=== PATIENT | male | born 1990 | race Caucasian/White ===

== ENCOUNTER 2018-09-21 12:04 | Emergency (ER) | payer SELFPAY ==
[2018-09-21 12:10] VITALS: BP 128/98
--- NOTE | 2018-09-21 12:24 | EDPHY ---
H & P Time Seen by Provider: 09/21/18 12:15 HPI/ROS: CHIEF COMPLAINT: Wants note to return to work HISTORY OF PRESENT ILLNESS: 28-year-old man was sick starting 2 days ago on Thursday with nausea vomiting and diarrhea. At the time he was a little bit sweaty and dizzy and lightheaded. He works as a executive sous chef in a restaurant took the day off from work yesterday and feels better today. He also had a little bit of a cough for 2 days with some green sputum which has since resolved. Today is not had any diarrhea. His last vomiting was yesterday evening. He says he wants to go back to work but needs a note from a doctor. No primary care provider. REVIEW OF SYSTEMS: Eye: no change in vision ENT: no sore throat Cardiac: no chest pain or syncope Pulmonary: No hemoptysis or shortness of breath Abdomen: No abdominal pain Musculoskeletal: no back pain Skin: no rash Neuro: no headache Constitutional: no fever or chills : no urinary symptoms A comprehensive 10 point review of systems is otherwise negative aside from elements mentioned in the history of present illness. PAST MEDICAL HISTORY: Negative Social history: Works as a executive sous chef at the [employer] General Appearance: Alert and conversant, cooperative. Eyes: No scleral icterus. ENT, Mouth: Normal mucous membranes. Normal pharynx, no trismus, no erythema or exudate. Respiratory: Normal respiratory effort, breath sounds equal, lungs are clear to auscultation. Cardiovascular: Regular rate and rhythm. Gastrointestinal: Abdomen is soft and non tender. Neurological: Alert, face symmetric, normal motor and sensory in extremities. Skin: Warm and dry, no rashes. Musculoskeletal: No peripheral edema. Psychiatric: Not agitated. Emergency Department course/MDM: Patient presents with symptoms likely representing a gastroenteritis which has resolved. He does not appear to have fever or active symptoms, it seems reasonable to let him go back to work. Has little bit of a cough for 2 days with sputum is no longer present, does not appear short of breath, afebrile, normal saturation and lung exam. Smoking Status: Current every day smoker Constitutional: Initial Vital Signs Temperature (C) 36.6 C 09/21/18 12:06 Heart Rate 90 09/21/18 12:06 Respiratory Rate 18 09/21/18 12:06 Blood Pressure 128/98 H 11/27/18 12:06 O2 Sat (%) 94 09/21/18 12:06 O2 Delivery Mode Room Air Allergies/Adverse Reactions: No Known Allergies Allergy (Unverified 09/21/18 12:06) Home Medications: Medication Instructions Recorded NK [No Known Home Meds] 09/21/18 MDM/Departure - Depart Disposition: Home, Routine, Self-Care Clinical Impression: gastroenteritis, resolved Condition: Good Instructions: Gastroenteritis (ED) Stand Alone Forms: Work Excuse Referrals: Dmitry Champion DO [Medical Doctor] - As per Instructions
== END 2018-09-21 12:40 | disposition home or self-care (01) ==
DX: K52.9 Noninfective gastroenteritis and colitis, unspecified (principal); F17.200 Nicotine dependence, unspecified, uncomplicated

== ENCOUNTER 2019-02-06 10:52 | Emergency (ER) | payer OTHER ==
[2019-02-06 10:57] VITALS: BP 143/87
--- NOTE | 2019-02-06 11:12 | EDPHY ---
H & P Stated Complaint: Lower back pain Time Seen by Provider: 02/06/19 11:12 HPI/ROS: HPI: This is a 28-year-old male who presents with Chief Complaint: Right-sided lumbar back pain Location: Right-sided lumbar back Quality: Injury, Pain Duration: 10 days ago Signs and Symptoms: No bleeding, no radiation, no numbness, no weakness, no tingling, no incontinence, no decreased range of motion, no swelling, + pain, no fever, no change in bowel or bladder habits Timing: Daily, worse after shift last night Severity: Moderate Context: Patient presents with 10 day history of right-sided lower back pain that is nonradiating in nature. He reports that he fell off his skateboard approximately 10 days ago and landed on his right lower back. He was ambulatory after the injury and continued to skateboard. He has noted some soreness over the last week on the right side of his lower back but denies any decreased range of motion, change in bowel or bladder habits, radiculopathy, paresthesias. Last night he worked his shift as a shift and was standing on his feet for greater than 12 hr with multiple repetitive movements of bending down and squatting. He reports that he woke up this morning with right-sided [id number] discomfort in his lumbar spine. During the interview patient is asking if he will be discharged by 2:00 p.m. Because he needs to go home to do is personal income taxes. Modifying Factors: Took no [id number] medications for discomfort Comment: ROS: A comprehensive 10 system review of systems is otherwise negative aside from elements mentioned in the history of present illness. MEDICAL/SURGICAL/SOCIAL HISTORY: Medical history: Generally healthy. Does not take any regular medications. Surgical history: Denies Social history: Employed as a gutter installer. Current every day smoker. CONSTITUTIONAL: Well-developed, well-nourished, adult white male, awake and alert, no obvious distress HEENT: Atraumatic and normocephalic, PERRL, EOMI. Nares patent; no rhinorrhea; no nasal mucosal edema. Tympanic membranes clear. Oropharynx clear, no exudate and moist pink mucosa. Airway patent. No lymphadenopathy. No meningismus. Cardiovascular: Normal S1/S2, regular rate, regular rhythm, without murmur rub or gallop. PULMONARY/CHEST: Symmetrical and nontender. Clear to auscultation bilaterally. Good air movement. No accessory muscle usage. ABDOMEN: Soft, nondistended, nontender, no rebound, no guarding, no peritoneal signs, no masses or organomegaly. No CVAT. EXTREMITIES: 2/2 pulses, strength 5/5, no deformities, no clubbing, no cyanosis or edema. PELVIC: no pain with rocking; bilateral hips flexion 125 degrees, extension 30 degrees, with no pain internal rotation and no pain external rotation. BACK: Moderate reproducible multiple trigger points of lumbar L3-L5 paraspinous muscle tenderness; No midline tenderness, no paraspinous spasm, deep tendon reflexes 2/2, no pain with straight leg raise, No foot drop. Excellent range of motion of flexion, extension and bilateral rotation. Achilles reflexes are equal bilaterally. Able to walk on heels and toes without difficulty. NEUROLOGICAL: no focal neuro deficits. GCS 15. SKIN: Warm and dry, no erythema. no rash. Good capillary refill. Source: Patient Exam Limitations: No limitations - Personal History Current Tetanus/Diphtheria Vaccine: Yes - Medical/Surgical History Hx Asthma: No Hx Chronic Respiratory Disease: No Hx Diabetes: No Hx Cardiac Disease: No Hx Renal Disease: No Hx Cirrhosis: No Hx Alcoholism: No Hx HIV/AIDS: No Hx Splenectomy or Spleen Trauma: No Other PMH: DENIES - Social History Smoking Status: Current every day smoker Constitutional: Initial Vital Signs Temperature (C) 36.8 C 02/06/19 10:54 Heart Rate 73 02/06/19 10:54 Respiratory Rate 16 02/06/19 10:54 Blood Pressure 143/87 H 02/06/19 10:54 O2 Sat (%) 95 02/06/19 10:54 O2 Delivery Mode Room Air Allergies/Adverse Reactions: No Known Allergies Allergy (Unverified 02/06/19 10:57) Home Medications: Medication Instructions Recorded Cyclobenzaprine [Flexeril 10 MG 10 mg PO Q8 PRN #12 tab 02/06/19 (*)] Medical Decision Making - Diagnostics Imaging Results: Imaging Impressions Lumbar Spine X-Ray 02/06/19 11:17 Impression: Normal two-view lumbar spine. ED Course/Re-evaluation: Vital signs reviewed and show mildly elevated blood pressure upon arrival likely due to pain. No neurological deficits to warrant emergent MRI Lumbar sacral x-ray my read shows good disc space height, no significant degenerative changes, no fractures Lidoderm patch applied Patient appears to have a lumbar strain of the muscle; given a prescription for Flexeril Patient is ambulatory without any deficits with good range of motion. No sciatic/radiculopathy symptoms No signs of neurovascular compromise/tenting of skin/compartment syndrome/ extremities and joints examined above and below area of concern and are neurovascularly intact/cauda equina syndrome/saddle anesthesia. Differential Diagnosis: Back pain including but not limited to muscular pain, herniated disc, spine fracture, intra-abdominal causes and urinary tract infection. - Data Points Medications Given: Discontinued Medications Miscellaneous Medication (Icy Hot Lidocaine/Menthol 4%/1% Patch) 1 patch TD EDNOW ONE Stop: 02/06/19 11:18 Last Admin: 02/06/19 11:20 Dose: 1 patch Departure - Departure Disposition: Home, Routine, Self-Care Clinical Impression: Strain of lumbar paraspinal muscle Qualifiers: Encounter type: initial encounter Qualified Code(s): S39.012A - Strain of muscle, fascia and tendon of lower back, initial encounter Condition: Good Instructions: Low Back Strain (ED) Additional Instructions: Take Tylenol 650 mg every 4 hours and/or Ibuprofen 600 mg every 8 hours with food as needed for pain. Use Flexeril every 8 hours as needed for muscle spasms. Apply moist heat for 30 minutes at a time; 2-3 times per day for the next 1-2 days. Please limit lifting greater than 10 lb or excessive bending activities until all pain has resolved. The x-rays obtained in the emergency department today demonstrate no evidence of an obvious fracture. Sometimes fractures are not obvious on the initial set of x-rays performed in the ED. For this reason, you should have repeat x-rays performed in 7-10 days if you are having any pain exclude the possibility of an occult fracture. Referrals: [facility],. [Clinic] - As per Instructions Stand Alone Forms: Work Excuse Prescriptions: Cyclobenzaprine [Flexeril 10 MG (*)] 10 mg PO Q8 PRN #12 tab PRN Reason: Spasms
[2019-02-06] MEDS ORDERED: LIDOCAINE 4%/MENTHOL 1% PATCH TD ONE (11:17)
[2019-02-06] MEDS ORDERED: PATCH REMOVAL 1 EA PATCH TD SCH (21:00)
== END 2019-02-06 11:42 | disposition home or self-care (01) ==
DX: S39.012A Strain of muscle, fascia and tendon of lower back, initial encounter (principal); V00.131A Fall from skateboard, initial encounter; Y92.480 Sidewalk as the place of occurrence of the external cause